=== PATIENT | female | born 1990 | race Caucasian/White ===

== ENCOUNTER 2017-08-04 01:33 | Emergency (ER) | payer MEDICAID ==
[~2017-08-04] VITALS: Ht 172.7 cm; Wt 75.0 kg
[2017-08-04] MEDS ORDERED: KETOROLAC 60MG/2ML VIAL IM STA (04:31)
[2017-08-04 06:38] VITALS: BP 113/62
== END 2017-08-04 06:47 | disposition home or self-care (01) ==
LOC: ER 01:33
DX: S67.42XA Crushing injury of left wrist and hand, initial encounter (principal); K02.9 Dental caries, unspecified; F12.10 Cannabis abuse, uncomplicated; Z90.89 Acquired absence of other organs; X58.XXXA Exposure to other specified factors, initial encounter; Y93.89 Activity, other specified; Y92.89 Other specified places as the place of occurrence of the external cause; Y99.8 Other external cause status
CPT/HCPCS: 73130; 81025; 96372; 99284; J1885